=== PATIENT | female | born 1930 | race Caucasian/White ===

== ENCOUNTER 2019-05-28 05:55 | Inpatient (IN) | payer OTHER ==
[2019-05-28] VITALS (13 sets, daily range): BP systolic 11–127; BP diastolic 44–70
[~2019-05-28] VITALS: Ht 157.5 cm; Wt 68.9 kg
[~2019-05-28 05:55] MED LIST: APIX5TAB PO; DILT1CAP PO; HYDR-4833 PO; HYDR200T36 PO; LEVO50TA7 PO; NAP500T PO
[2019-05-28] MEDS ORDERED: VANCOMYCIN HCL 1000 MG VL ONE ×3 (06:27→07:11)
[2019-05-28] MEDS ORDERED: CELECOXIB 100 MG CAP PO ONE (06:30)
[2019-05-28] MEDS ORDERED: PREGABALIN 25 MG CAP PO ONE (06:30)
[2019-05-28] MEDS ORDERED: TRANEXAMIC ACID 20 ML ONE (06:45)
[2019-05-28] MEDS ORDERED: BUPIVACAINE W/ EPINEPH 0.25% INJ 50ML MDV ONE (06:46)
[2019-05-28] MEDS ORDERED: MORPHINE SULF(PF) 0.5MG/ML 10ML VIAL ONE ×2 (06:48→07:38)
[2019-05-28] MEDS ORDERED: ACETAMINOPHEN IV 100 ML IV ONE (07:09)
[2019-05-28] MEDS ORDERED: PROPOFOL 10 MG/ML 20 ML IV ONE (07:25)
[2019-05-28] MEDS ORDERED: PHENYLEPHRINE HCL 10 MG/ML VL IV ONE (07:25)
[2019-05-28] MEDS ORDERED: fentaNYL CITRATE 100 MCG/2 ML VL ONE (07:38)
[2019-05-28] MEDS ORDERED: MIDAZOLAM HCL 1MG/1ML-2 ML VIAL ONE ×2 (07:38→08:21)
[2019-05-28] MEDS ORDERED: TETRACAINE 1% INJ 2 ML VIAL IJ ONE (07:40)
[2019-05-28] MEDS ORDERED: DexAMETHasone SOD PHOS 10MG/1ML VIAL INJ ONE (08:00)
[2019-05-28] MEDS ORDERED: GENTAMICIN SULF 80 MG/2 ML VIAL ONE (08:19)
[2019-05-28] MEDS ORDERED: LABETALOL HCL 5 MG/ML 4ML SYRINGE IV PRN (08:30)
[2019-05-28] MEDS ORDERED: ePHEDrine SULFATE 50 MG/ML AMP IV PRN (08:30)
[2019-05-28] MEDS ORDERED: diphenhdrAMINE HCL 50 MG/1 ML VL IV PRN (08:30)
[2019-05-28] MEDS ORDERED: NALBUPHINE HCL 10 MG/1ml INJECTION SUBCUT ONE (08:30)
[2019-05-28] MEDS ORDERED: DexAMETHasone SOD PHOS 10MG/1ML VIAL INJ IV PRN (08:30)
[2019-05-28] MEDS ORDERED: NALOXONE HCL 0.4 MG/ML VIAL IV PRN (08:30)
[2019-05-28] MEDS ORDERED: ONDANSETRON HCL 4 MG/2 ML VIAL IV PRN (08:30)
[2019-05-28] MEDS ORDERED: HYDROmorphone HCL 2 MG/ML VL IV PRN ×2 (08:30→11:15)
[2019-05-28] MEDS ORDERED: HYDROcodone-ACET 5/325MG TAB PO PRN (11:15)
[2019-05-28] MEDS ORDERED: LEVOTHYROXINE SODIUM 50 MCG TAB PO ONE (11:15)
[2019-05-28] MEDS ORDERED: APIXABAN 5 MG TAB PO ONE (11:15)
[2019-05-28] MEDS ORDERED: NITROGLYCERIN 0.4 MG SL TAB SL PRN (11:15)
[2019-05-28] MEDS ORDERED: BISACODYL 5 MG EC TAB PO PRN (11:15)
[2019-05-28] MEDS ORDERED: ACETAMINOPHEN 325 MG TAB PO PRN (11:15)
[2019-05-28] MEDS ORDERED: MORPHINE SULF INJ 2 MG/ML SYRINGE 1ML IV PRN (11:15)
--- NOTE | 2019-05-28 12:20 | NUR ---
Telemetry admit from PACU Patient admitted to Telemetry unit after SBAR received from [facility]. Patient oriented to primary RN, unit, room, bed, and unit policies regarding patient care and visiting hours. Patient placed on bedside oxygen, weighed by bed scale and encouraged to call if they need something. Surgical dressing to left hip clean/dry/intact and hip abduction brace in place. Bed in lowest, locked position with side rails up x2. Fall precautions in place and call light within reach. All questions and concerns addressed, patient verbalized understanding.Will continue to monitor Q1hr/PRN.
[2019-05-28] MEDS: LACTATED RINGER'S 1,000 ML IV SCH ×2 (13:48→21:04)
[2019-05-28] MEDS: DILTIAZEM HCL 120MG ER CAP PO SCH (13:48)
[2019-05-28] MEDS: CLINDAMYCIN 900MG IV 50 ML IV SCH ×2 (13:49→22:08)
--- NOTE | 2019-05-28 15:30 | NUR ---
DRESSING Wound dressing applied to left heel wound. Mild purulent drainage noted on bed sheet. Wound consult already ordered.
--- NOTE | 2019-05-28 18:10 | NUR ---
WOUND PHOTO wound photo of left heel taken
--- NOTE | 2019-05-28 19:00 | NUR ---
PT SET UP ON CONTINUOS BEDSIDE POX PER MD ORDER. HR 74 3L 99% RR 20. PT IS RESTING WITH NO ACUTE DISTRESS NOTED.
[2019-05-28] MEDS: APIXABAN 5 MG TAB PO SCH (22:08)
[2019-05-28] MEDS: DOCUSATE SOD 100 MG CAP PO SCH (22:08)
[2019-05-29] VITALS (22 sets, daily range): BP systolic 92–126; BP diastolic 30–69
[2019-05-29 05:14] LABS: Hemoglobin 8.2 g/dL (12.2-16.2)
[2019-05-29 05:16] LABS: Hematocrit 23.7 % (36.0-46.0)
[2019-05-29 05:30] LABS: Albumin 2.4 g/dL (3.4-5.0); Potassium 4.8 mmol/L (3.5-5.1)
[2019-05-29 05:33] LABS: BUN/Creatinine Ratio 26.1; Bilirubin, Total 0.3 mg/dL (0.2-1.0); Total Protein 5.4 g/dL (6.4-8.2)
--- NOTE | 2019-05-29 07:01 | NUR ---
RT NOTE: PT RECEIVED ON 3L NC WITH CONTINUOUS PULSE OX IN PLACE. PT STATED SHE DID NOT HAVE ANY SOB. SPO2 100 HR 90 RR 16. WILL CONTINUE TO MONITOR.
[2019-05-29] MEDS: LACTATED RINGER'S 1,000 ML IV SCH ×2 (07:04→18:57)
[2019-05-29] MEDS: LEVOTHYROXINE SODIUM 50 MCG TAB PO SCH (07:32)
[2019-05-29] MEDS: CLINDAMYCIN 900MG IV 50 ML IV SCH (07:33)
--- NOTE | 2019-05-29 07:38 | NUR ---
OPENING NOTE Assumed care of patient from NOC RN, Thor. Patient awake and alert with no S/S of distress/SOB or pain. Nasal cannula in place, connected to 2L O2. [place] catheter intact/patent and hung below bed. Surgical dressing to lateral left hip is clean/dry/intact and abduction brace in place. Bilateral lower extremity SCD's set on intermittent. Instructed on POC and to call for assistance PRN, verbalized understanding. Bed in lowest, locked position with side rails up x2. Fall precautions in place and call light within reach. Will continue to monitor for changes Q1hr and PRN.
[2019-05-29] MEDS: Ensure HIGH Protein Vanilla 8oz Bottle PO SCH ×3 (09:27→18:57)
[2019-05-29] MEDS: FERROUS SULFATE 325 MG TAB PO SCH ×2 (09:27→18:57)
[2019-05-29] MEDS: DOCUSATE SOD 100 MG CAP PO SCH ×2 (09:28→23:58)
[2019-05-29] MEDS: DILTIAZEM HCL 120MG ER CAP PO SCH (09:28)
[2019-05-29] MEDS: MULTIPLE VITAMIN TAB PO SCH (09:29)
[2019-05-29] MEDS: APIXABAN 5 MG TAB PO SCH ×2 (09:29→23:58)
[2019-05-29] MEDS: ASCORBIC ACID 500 MG TAB PO SCH (09:29)
--- NOTE | 2019-05-29 10:52 | NUR ---
OUT OF BED PT assisted patient to bedside chair. Patient currently sitting in chair with no S/S of distress noted. Will continue to monitor.
--- NOTE | 2019-05-29 11:00 | NUR ---
WOUND CARE NOTE: IN TO SEE PATIENT AT THIS TIME PER WOUND CARE CONSULT REQUEST. PATIENT NOTED UPON PRESENTATION TO SURGERY TO HAVE WOUND TO LEFT HEEL. WOUND CONSULT ORDERED. WOUND PHOTO TAKEN BY ADMITTING NURSE FOR REFERENCE. PATIENT ADMITTED TO [facility] WITH DIAGNOSIS OF FEMORAL NECK FRACTURE. SHE IS NOTED TO HAVE AN UNSTAGEABLE PRESSURE ULCER TO THE LEFT HEEL THAT IS CHRONIC. PATIENT STATES THAT SHE HAS BEEN SEEING A FILLING MACHINE TENDER FOR TREATMENT OF HER PRESSURE ULCER. HER NEXT APPOINTMENT IS NEXT WEEK. PATIENT IS NOTED TO HAVE AN UNSTAGEABLE PRESSURE ULCER MEASURING 3 X 2 X 0.2. WOUND BED IS PALE RED, WITH YELLOW SLOUGH FORMATION. PATIENT HAS BEEN RECEIVING SERIAL DEBRIDEMENTS, AND WILL CONTINUE TO DO SO OUTPATIENT. APPLIED THERAHONEY GAUZE, TELFA. WRAPPED LEFT FOOT WITH KERLIX, SECURED WITH TAPE. AURY BOOTS ARE APPLIED TO BOTH FEET/HEELS. SURGICAL DRESSING IS APPLIED CDI TO LEFT HIP. RECOMMEND: FREQUENT TURN SCHEDULE Q 2 HOURS, PRN CONDITION PERMITS,WITH PRESSURE REDISTRIBUTION USING PILLOWS/WEDGES, BID/PRN APPLICATION WITH MOISTURE BARRIER CREAM, OPTIFOAM GENTLE SACRAL DRESSING PREVENTATIVE, EOD/PRN DRESSING CHANGE TO LEFT HEEL WOUND, AURY FOAM BOOTS TO BILATERAL HEELS, SKIN/WOUND CARE PLAN, DIETARY CONSULT, CONTINUED MONITORING BY WOUND CARE TEAM. Addendum: 05/29/19 at 1208 by Halima Ash RN Amended: Links added.
--- NOTE | 2019-05-29 13:16 | NUR ---
I received a call from [facility] Cos[employer] Machine Operator Destinee letting me know that this patient has a bed at [facility] Acute room 60B, Dr. Antoinette Arrieta accepting-she arranged [facility] to transport at 5pm. I let her know that this patient does not have a discharge order yet-I relayed information to Candace-social media sr strategy manager.
--- NOTE | 2019-05-29 16:33 | NUR ---
TRANSFER Spoke with Dr. Egan regarding patient's discharge/transfer, states discharge will be postponed until tomorrow, 05/30/19. states he will contact [facility] to inform them.
[2019-05-29] MEDS ORDERED: VANCOMYCIN 1GM/250ML 250 ML IV SCH (17:00)
--- NOTE | 2019-05-29 19:27 | NUR ---
PT ASSESSED ON CONTINUOUS POX MONITOR. SPO2 96% ON RA, HR 84. PT DENIES ANY RESPIRATORY DISTRESS. WILL CONTINUE TO MONITOR.
[2019-05-30] VITALS (17 sets, daily range): BP systolic 10–142; BP diastolic 34–56
[2019-05-30] MEDS: LACTATED RINGER'S 1,000 ML IV SCH ×2 (03:04→13:04)
[2019-05-30] MEDS: LEVOTHYROXINE SODIUM 50 MCG TAB PO SCH (06:45)
[2019-05-30 07:29] LABS: Hemoglobin 7.1 g/dL (12.2-16.2)
[2019-05-30 07:33] LABS: Hematocrit 20.8 % (36.0-46.0)
--- NOTE | 2019-05-30 08:00 | NUR ---
Opening Shift Note Assumed care of patient, awake, alert, and oriented. No S/S of distress/SOB or pain. Instructed on POC and to call for assist PRN with call light within reach. Bed in low/locked position, side rails upx2. Will continue to monitor for changes Q1hr and PRN.
[2019-05-30] MEDS: Ensure HIGH Protein Vanilla 8oz Bottle PO SCH ×3 (08:09→18:00)
[2019-05-30] MEDS: FERROUS SULFATE 325 MG TAB PO SCH ×2 (08:09→18:00)
--- NOTE | 2019-05-30 09:49 | NUR ---
IT WAS NOTED IN THE PATIENT CHART THAT THE PATIENT WAS TURNED ON THE RIGHT SIDE AT 0600. I ENTERED THE PATIENTS ROOM AT 0800 TO TURN HER AND SHE WAS SUPINE. I PUT THE PATIENT ON THE RIGHT BECAUSE SHE WANTED PRESSURE OFF OF HER HIP.
--- NOTE | 2019-05-30 10:00 | NUR ---
D/C Planning Per consult for SNF placement for rehab. Contact [facility]:) Fax:) faxed medical records. Per Jeaneth from [facility] Pt has been accepted to room [address] accepting MD Dr Todd Arrieta. Advised Jeaneth from [facility] Pt will be discharging today 05/30/19. Contact [facility]: ) Fax:) Faxed medical records requesting authorization for SNF placement. Contact [facility] Ph:) spoke to Reid. Advised Reid to arrange transportation via [employer] at 6:45. Informed OMAR Gonzales. Addendum: 05/30/19 at 1017 by EZEQUIEL COLON Amended: Links added. Addendum: 05/30/19 at 1018 by EZEQUIEL COLON Advised Reid to arrange transportation via [employer] at 18:45.
[2019-05-30] MEDS: DOCUSATE SOD 100 MG CAP PO SCH ×2 (10:13→21:33)
[2019-05-30] MEDS: ASCORBIC ACID 500 MG TAB PO SCH (10:13)
[2019-05-30] MEDS: APIXABAN 5 MG TAB PO SCH ×2 (10:13→21:33)
[2019-05-30] MEDS: MULTIPLE VITAMIN TAB PO SCH (10:13)
[2019-05-30] MEDS: DILTIAZEM HCL 120MG ER CAP PO SCH (10:14)
--- NOTE | 2019-05-30 12:35 | NUR ---
TRANSFUSION BLOOD TRANSFUSION BEGIN. VS 114/48 B/P, 80 BPM, 16 BPM, 99% O2 ON 2L N/C, 98.4 F. EDUCATED PATIENT ON S/S TO REPORT. NO S/S OF DISTRESS, SOB, OR PAIN. WILL CONTINUE TO MONITOR Addendum: 05/30/19 at 1254 by ANA M MEYER RN RN 1ST UNIT
--- NOTE | 2019-05-30 14:54 | NUR ---
TRANSFUSION 1ST TRANSFUSION ENDED. PATIENT TOLERATED WELL. NO S/S DISTRESS, SOB, PAIN. VITAL SIGNS; 98.2 F, HEART RATE 74 BPM, RR 16 BPM, B/P 106/42. WILL CONTINUE TO MONITOR
--- NOTE | 2019-05-30 17:08 | NUR ---
OMAR Gonzales advised me Pt is still getting transfusion. I change transportation time to 20:00 with [facility].
--- NOTE | 2019-05-30 18:16 | NUR ---
assessment Patient is a 89 year old female who is alert and oriented. Patients cognitive abilities are intact. Prior to admission patient lived home alone and functioned independently. Patient informed me she is able to care for her own ADLs. Per patient she was picking up trash in her yard and fell fracturing her hip. Patient agrees to SNF for rehab. Patient has a fww and a wheelchair for home use. Patients PCP is Dr Vaz. I informed patient she has a right to speak to a case management social worker regarding all care. I informed patient she has a right to participate in any and all discharge planning. Patient has a POA and advanced directive. Patient verbalized understanding and agreed to discharge plan to SNF. Addendum: 05/30/19 at 1818 by Cee COLON Amended: Links added.
--- NOTE | 2019-05-30 19:00 | NUR ---
CLOSING SHIFT ENDORSED CARE TO NIGHT RN. NO S/S DISTRESS, SOB, OR PAIN
[2019-05-30 19:22] LABS: Hematocrit 28.6 % (36.0-46.0); Hemoglobin 9.7 g/dL (12.2-16.2)
--- NOTE | 2019-05-30 19:25 | NUR ---
RECEIVED PATIENT FROM DAY SHIFT RN. PATIENT RESTING IN BED. NO S/S OF DISTRESS NOTED BRACE ON LEFT HIP. DRESSING C/D/I. DENIED PAIN FOR NOW. PATIENT AWARE OF WAITING FOR TRANSFERRING OUT TO [facility] WITH [place]GRO CATH THAT DRAINING GRAVITY. DAY SHIFT RN WILL TAKE WOUND PICTURES FOR D/C. WILL CALL [facility] FOR REPORT. BED IN LOWEST POSITION WITH SIDE RAILS UP X 2. CALL RODRIGUEZ WITHIN REACH. ALARM ON. CONTINUE TO MONITOR FOR CHANGES Q1H AND PRN.
--- NOTE | 2019-05-30 19:34 | NUR ---
TRIED CALL KATY @ [phone] TWICE, NO ONE ANSWER THE PHONE. WILL TRY IT LATER. CONTINUE CARE.
--- NOTE | 2019-05-30 19:50 | NUR ---
WOUND PHOTO DISCHARGE WOUND PHOTO TAKEN. WOUND DRESSING CHANGE PER OCCUPATIONAL MEDICINE OFFICER ORDERS.
--- NOTE | 2019-05-30 19:55 | NUR ---
TRIED CALL KATY @ [phone] TWICE AGAIN, NO ONE ANSWER. WILL TRY IT LATER. CONTINUE CARE.
--- NOTE | 2019-05-30 20:28 | NUR ---
TRIED CALL KATY @ [phone] AGAIN, NO ONE ANSWER. WILL TRY IT LATER. CONTINUE CARE.
--- NOTE | 2019-05-30 20:30 | NUR ---
CALLED [facility] @ [phone] TO CONFIRM THAT TRANSPORTATION WILL BE HERE AROUND 5 TO [facility]. CONTINUE CARE.
--- NOTE | 2019-05-30 21:12 | NUR ---
TRIED CALL KATY @ [phone] AGAIN, NO ONE ANSWER. WILL TRY IT LATER. CONTINUE CARE.
--- NOTE | 2019-05-30 21:55 | NUR ---
Discharge instructions PREPARED BY DAY SHIFT RN AND given as ordered. Encourage to follow up with PMD as instructed. All questions and concerns addressed. Patient verbalized understanding. Medication reconciliation form completed and copy given to patient. IV removed with catheter intact, pressure dressing applied, hicks catheter WITH PATIENT TO [facility]. Telemetry unit returned to ICU. Patient taken to vehicle via [facility] with all personal belongings, accompanied by [facility] staff . No distress noted at time of departure. MESSAGE LEFT TO [facility] STAFF ANDREA TO [facility] TO CALL BACK FOR REPORT. NIGHT MEDICATIONS GIVEN ALREADY.
== END 2019-05-30 21:32 | DRG 470 ==
LOC: SUR 05:55 → TELE-WESTW 12:27
PROVIDERS: ADMIT Orthopaedic Surgery Adult Reconstructive Orthopaedic Surgery; ATTEND Orthopaedic Surgery Adult Reconstructive Orthopaedic Surgery
PROC: 0SRS0J9 Replacement of Left Hip Joint, Femoral Surface with Synthetic Substitute, Cemented, Open Approach (ICD-10-PCS; principal; 2019-05-28 07:35)
PROC: 0QP704Z Removal of Internal Fixation Device from Left Upper Femur, Open Approach (ICD-10-PCS; 2019-05-28 07:35)
PROC: 30233N1 Transfusion of Nonautologous Red Blood Cells into Peripheral Vein, Percutaneous Approach (ICD-10-PCS; 2019-05-30)
DX: M97.02XA Periprosthetic fracture around internal prosthetic left hip joint, initial encounter (principal); I10 Essential (primary) hypertension; I25.10 Atherosclerotic heart disease of native coronary artery without angina pectoris; I48.91 Unspecified atrial fibrillation; Z88.0 Allergy status to penicillin; Y83.8 Other surgical procedures as the cause of abnormal reaction of the patient, or of later complication, without mention of misadventure at the time of the procedure; Y92.89 Other specified places as the place of occurrence of the external cause; X58.XXXA Exposure to other specified factors, initial encounter; Y93.89 Activity, other specified; Y99.8 Other external cause status
CPT/HCPCS: 36415; 72170; 73501; 80053; 85014; 85018; 86850; 86900; 86901; 86920; 87081; 97116; 97163; 97530; A4565; G0378; J0131; J1100; J2250; J2704; J3490; J7060